=== PATIENT | male | born 1995 | race Caucasian/White ===

== ENCOUNTER 2019-08-15 21:20 | Emergency (ER) | payer OTHER ==
[2019-08-15] MEDS ORDERED: NA CHLORIDE 0.9% 1,000 ML ONE (22:08)
[2019-08-15] MEDS ORDERED: ONDANSETRON 4 MG/2 ML VIAL ONE (22:08)
[2019-08-15] MEDS ORDERED: ALBUTEROL 2.5 MG/3 ML NEB SOL ONE (22:08)
[2019-08-15 22:44] LABS: Absolute Lymphocytes (CBC) 2.1 K/uL (0.7-4.9); Basophils % 0.3 % (0-1.3); Hematocrit 49.2 % (39.6-49.0); Lymphocytes % 19.2 % (15.3-44.8); MPV 8.4 fL (7.6-11.3); RBC Red Blood Cell Count 5.75 M/uL (4.33-5.43)
[2019-08-15 23:47] LABS: ALT/SGPT 63 U/L (12-78); AST/SGOT 25 U/L (15-37); Albumin 3.9 g/dL (3.4-5.0); Alkaline Phosphatase 44 U/L (45-117); BUN Blood Urea Nitrogen 13 mg/dL (7-18); Bicarbonate 31 mmol/L (21-32); Bilirubin Direct 0.1 mg/dL (0-0.2); Bilirubin Total 0.3 mg/dL (0.2-1.0); Glucose Level 100 mg/dL (74-106); Lipase 141 U/L (73-393); Magnesium 2.1 mg/dL (1.8-2.4); NT PRO-BNP 13 pg/mL (<125); Potassium 3.8 mmol/L (3.5-5.1); Sodium Level 141 mmol/L (136-145); Troponin (Emerg Dept Use Only) < 0.02 ng/mL (0.0-0.045)
[2019-08-16] MEDS ORDERED: ACETAMINOPHEN 500 MG TAB ONE (01:09)
--- NOTE | 2019-08-16 01:14 | EDPHYS ---
Physician Documentation [facility] Name: Russell Jaramillo Age: 24 yrs Sex: Male : 1995 Arrival Date: 08/15/2019 Time: 21:23 Bed 26 Private MD: ED Physician Srikanth Kirby HPI: 08/16 00:04 This 24 yrs old Male presents to ER via EMS with complaints of Shortness Of wa Breath, Vomiting. 00:04 The patient has shortness of breath with light activity. Onset: The symptoms/episode wa began/occurred today. Duration: The symptoms are continuous, and are steadily getting worse. The patient's shortness of breath is aggravated by coughing, exertion, light activity, is alleviated by nothing. Associated signs and symptoms: Pertinent positives: chest pain, non-productive cough, fever, vomiting, Pertinent negatives: diaphoresis, dizziness, numbness in extremities. Severity of symptoms: At their worst the symptoms were moderate in the emergency department the symptoms have improved mildly. The patient has experienced similar episodes in the past, a few times. The patient has been recently seen by a physician: the patient's primary care provider. states had come down with flu-like symptoms over that developed into a LLL pna. took a z-te. just went back to work today. had a cute SOB and vomited x 2 while at work. c/o SOB. h/o asthma. h/o pna in the past. Historical: - Allergies: 08/15 21:32 No Known Allergies; tr5 - Home Meds: 21:32 Albuterol Inhl [Active]; Azithromycin Oral [Active]; tr5 - PMHx: 21:32 Asthma; tr5 - Immunization history:: Adult Immunizations up to date. - Social history:: Smoking status: Patient/guardian denies using tobacco. - Ebola Screening: : No symptoms or risks identified at this time. - Family history:: not pertinent. - Hospitalizations: : No recent hospitalization is reported. ROS: 08/16 00:08 Eyes: Negative for injury, pain, redness, and discharge, ENT: Negative for injury, wa pain, and discharge, Neck: Negative for injury, pain, and swelling, Back: Negative for injury and pain, : Negative for injury, bleeding, discharge, and swelling, MS/Extremity: Negative for injury and deformity, Skin: Negative for injury, rash, and discoloration, Neuro: Negative for headache, weakness, numbness, tingling, and seizure, Psych: Negative for depression, anxiety, suicide ideation, homicidal ideation, and hallucinations. Constitutional: Positive for fever, Negative for body aches, chills. Cardiovascular: Positive for chest pain, Negative for edema, orthopnea, palpitations, paroxysmal nocturnal dyspnea. Respiratory: Positive for cough, shortness of breath, Negative for hemoptysis, orthopnea. Abdomen/GI: Positive for nausea and vomiting, Negative for abdominal pain. All other systems are negative. Exam: 00:11 Constitutional: This is a well developed, well nourished patient who is awake, alert, wa and in no acute distress. Head/Face: Normocephalic, atraumatic. Eyes: Pupils equal round and reactive to light, extra-ocular motions intact. Lids and lashes normal. Conjunctiva and sclera are non-icteric and not injected. Cornea within normal limits. Periorbital areas with no swelling, redness, or edema. ENT: Nares patent. No nasal discharge, no septal abnormalities noted. Tympanic membranes are normal and external auditory canals are clear. Oropharynx with no redness, swelling, or masses, exudates, or evidence of obstruction, uvula midline. Mucous membranes moist. Neck: Trachea midline, no thyromegaly or masses palpated, and no cervical lymphadenopathy. Supple, full range of motion without nuchal rigidity, or vertebral point tenderness. No Meningismus. Chest/axilla: Normal chest wall appearance and motion. Nontender with no deformity. No lesions are appreciated. Abdomen/GI: Soft, non-tender, with normal bowel sounds. No distension or tympany. No guarding or rebound. No evidence of tenderness throughout. Back: No spinal tenderness. No costovertebral tenderness. Full range of motion. Skin: Warm, dry with normal turgor. Normal color with no rashes, no lesions, and no evidence of cellulitis. MS/ Extremity: Pulses equal, no cyanosis. Neurovascular intact. Full, normal range of motion. Neuro: Awake and alert, GCS 15, oriented to person, place, time, and situation. Cranial nerves II-XII grossly intact. Motor strength 5/5 in all extremities. Sensory grossly intact. Cerebellar exam normal. Normal gait. Psych: Awake, alert, with orientation to person, place and time. Behavior, mood, and affect are within normal limits. 00:11 Cardiovascular: Rate: tachycardic, Rhythm: regular, Pulses: no pulse deficits are appreciated, Heart sounds: normal, Edema: is not appreciated, JVD: is not appreciated. 00:11 Respiratory: the patient does not display signs of respiratory distress, Respirations: normal, Breath sounds: decreased breath sounds, that are moderate, are scattered, Respiratory rate: nml Vital Signs: 08/15 21:32 BP 122 / 88; Pulse 117; Resp 17; Temp 98.2(O); Pulse Ox 96% on R/A; Weight 100.7 kg tr5 (R); Height 5 ft. 11 in. (180.34 cm); 23:00 BP 122 / 88; Pulse 95; Resp 16; Pulse Ox 99% on R/A; tr5 21:32 Body Mass Index 30.96 (100.70 kg, 180.34 cm) tr5 MDM: 21:33 Patient medically screened. ny 08/16 00:11 Differential diagnosis: Bronchitis pneumonia, pulmonary edema, Pulmonary Embolism wa reactive airway disease, finished zpak. still with symptoms. tachy with SOB. will evaluate further with CT chest. nebs. labs. EKG. reassess. Data reviewed: vital signs, nurses notes. Test interpretation: by ED physician or midlevel provider: EKG interp by me: HR 87. nml sinus. noted flipped T's in aVF and III. isolated. non-specific. 00:52 Test interpretation: by ED physician or midlevel provider: CT chest: no dissection. no wa PE. no pna. 00:53 Response to treatment: the patient's symptoms have markedly improved after treatment. ny ED course: will repeat EKG. pt improved. will walk pt and reassess. 01:10 ED course: walked pt in ED. states SOB resolved. feels better. no nausea. will d/c with ny prednisone burst. close f/u with pulm. advised immediate return if worsening. repeat EKG unchanged from initial. 08/15 21:57 Order name: BMP; Complete Time: 23:58 ny 08/15 21:57 Order name: CBC with Diff; Complete Time: 23:58 ny 08/15 21:57 Order name: Hepatic Function; Complete Time: 23:58 ny 08/15 21:57 Order name: Lipase; Complete Time: 23:59 ny 08/15 21:57 Order name: Magnesium; Complete Time: 23:59 ny 08/15 21:57 Order name: NT PRO-BNP; Complete Time: 23:59 ny 08/15 21:57 Order name: CT Chest For PE Angio ny 08/15 21:57 Order name: PT-INR; Complete Time: 23:59 ny 08/15 21:57 Order name: Troponin (emerg Dept Use Only); Complete Time: 23:59 ny 08/15 21:57 Order name: EKG; Complete Time: 21:59 ny 08/15 21:57 Order name: Cardiac monitoring; Complete Time: 22:52 ny 08/15 21:57 Order name: EKG - Nurse/Tech; Complete Time: 22:54 ny 08/15 21:57 Order name: IV Saline Lock; Complete Time: 22:53 ny 08/15 21:57 Order name: Labs collected and sent; Complete Time: 22:52 ny 08/15 21:57 Order name: O2 Per Protocol; Complete Time: 22:14 ny 08/15 21:57 Order name: O2 Sat Monitoring; Complete Time: 22:14 ny Administered Medications: 08/15 22:41 Drug: Albuterol 1.25 mg Route: Inhalation; tr5 08/16 00:29 Follow up: Response: Marked relief of symptoms tr5 08/15 22:41 Drug: Zofran 4 mg Route: IVP; Site: right antecubital; tr5 08/16 00:28 Follow up: Response: Marked relief of symptoms tr5 08/15 22:41 Drug: NS 0.9% 1000 ml Route: IV; Rate: 1 bolus; Site: right antecubital; tr5 08/16 00:29 Follow up: Response: No adverse reaction; IV Status: Completed infusion; IV Intake: tr5 1000ml 01:09 Drug: Tylenol 1000 mg Route: PO; tr5 01:30 Follow up: Response: Marked relief of symptoms tr5 Disposition: 08/16/19 01:13 Discharged to Home. Impression: shortness of breath, vomiting, chest pain. - Condition is Stable. - Discharge Instructions: Shortness of Breath, Tquo-bf-Dems, Nonspecific Chest Pain, [id number]-[id number]. - Prescriptions for Prednisone 20 mg Oral Tablet - take 2 tablets by ORAL route once daily for 4 days; 8 tablet. - Medication Reconciliation Form, Thank You Letter, Antibiotic Education, Prescription Opioid Use form. - Follow up: Pedro Pablo Martin MD; When: 1 - 2 days; Reason: Recheck today's complaints. - Problem is new. - Symptoms have improved. - Notes: take prednisone as prescribed. take albuterol as needed. follow up with the lung doctor within 2 days as discussed. return immediately for any concerns you deem worrisome, including worsening chest pain and or shortness of breath Signatures: Dispatcher [employer] EDMS Srikanth Kirby MD MD wa Rodriguez, Tommie RN RN tr5 Corrections: (The following items were deleted from the chart) 01:39 01:13 08/16/2019 01:13 Discharged to Home. Impression: shortness of breath; vomiting; tr5 chest pain. Condition is Stable. Forms are Medication Reconciliation Form, Thank You Letter, Antibiotic Education, Prescription Opioid Use. Follow up: Pedro Pablo Martin; When: 1 - 2 days; Reason: Recheck today's complaints. Problem is new. Symptoms have improved. yohan
--- NOTE | 2019-08-16 01:14 | ER ---
Nurse's Notes [facility] Name: Russell Jaramillo Age: 24 yrs Sex: Male : 1995 Arrival Date: 08/15/2019 Time: 21:23 Bed 26 Private MD: Diagnosis: shortness of breath;vomiting;chest pain Presentation: 08/15 21:24 Presenting complaint: EMS states: Pt was diagnosed with pneumonia last week at an tr5 urgent care in [place]. Today was his first day back at work and about an hour ago he started feeling short of breath, vomited X3 and says he feels lightheaded. Transition of care: patient was not received from another setting of care. Onset of symptoms was August 15, 2019. Risk Assessment: Do you want to hurt yourself or someone else? Patient reports no desire to harm self or others. Initial Sepsis Screen: Does the patient meet any 2 criteria? HR > 90 bpm. Does the patient have a suspected source of infection? No. Patient's initial sepsis screen is negative. Care prior to arrival: None. 21:24 Method Of Arrival: EMS: [facility] tr5 21:24 Acuity: FERNANDO 3 tr5 Triage Assessment: 21:24 General: Behavior is calm, cooperative. Respiratory:. tr5 21:24 Respiratory: the patient has mild shortness of breath. tr5 21:30 Respiratory: Onset: The symptoms/episode began/occurred suddenly. tr5 Historical: - Allergies: 21:32 No Known Allergies; tr5 - Home Meds: 21:32 Albuterol Inhl [Active]; Azithromycin Oral [Active]; tr5 - PMHx: 21:32 Asthma; tr5 - Immunization history:: Adult Immunizations up to date. - Social history:: Smoking status: Patient/guardian denies using tobacco. - Ebola Screening: : No symptoms or risks identified at this time. - Family history:: not pertinent. - Hospitalizations: : No recent hospitalization is reported. Screenin:02 Abuse screen: Denies threats or abuse. Nutritional screening: No deficits noted. tr5 Tuberculosis screening: No symptoms or risk factors identified. Fall Risk None identified. Assessment: 21:56 General: Appears uncomfortable. Pain: Denies pain. Neuro: Level of Consciousness is tr5 awake, alert, obeys commands, Oriented to person, place, time, [place] are equal bilaterally. Cardiovascular: Heart tones present Capillary refill < 3 seconds Pulses are all present. Edema is absent. Rhythm is regular. Respiratory: Airway is patent Respiratory effort is even, unlabored, Respiratory pattern is regular, symmetrical, Breath sounds are clear. Respiratory: Reports shortness of breath. GI: Reports vomiting. : No signs and/or symptoms were reported regarding the genitourinary system. EENT: No signs and/or symptoms were reported regarding the EENT system. Derm: No signs and/or symptoms reported regarding the dermatologic system. Musculoskeletal: No signs and/or symptoms reported regarding the musculoskeletal system. Vital Signs: 21:32 BP 122 / 88; Pulse 117; Resp 17; Temp 98.2(O); Pulse Ox 96% on R/A; Weight 100.7 kg tr5 (R); Height 5 ft. 11 in. (180.34 cm); 23:00 BP 122 / 88; Pulse 95; Resp 16; Pulse Ox 99% on R/A; tr5 21:32 Body Mass Index 30.96 (100.70 kg, 180.34 cm) tr5 ED Course: 20:30 Inserted saline lock: 20 gauge in right antecubital area, using aseptic technique. tr5 21:23 Patient arrived in ED. tr5 21:27 Triage completed. tr5 21:32 Arm band placed on Patient placed. tr5 21:33 Srikanth Kirby MD is Attending Physician. wa 21:55 Uche Lma, RN is Primary Nurse. tr5 22:02 Placed in gown. Bed in low position. Call light in reach. tr5 22:43 Radiology exam delayed due to lab results not completed at this time. (BUN/Creatinine). nj 23:10 Radiology exam delayed due to lab results not completed at this time. (BUN/Creatinine). kw1 23:25 Radiology exam delayed due to lab results not completed at this time. kw1 08/16 00:19 CT Chest For PE Angio In Process Unspecified. EDMS 01:12 Pedro Pablo Martin MD is Referral Physician. wa 01:37 No provider procedures requiring assistance completed. Patient did not have IV access tr5 during this emergency room visit. Administered Medications: 08/15 22:41 Drug: Albuterol 1.25 mg Route: Inhalation; tr5 08/16 00:29 Follow up: Response: Marked relief of symptoms tr5 08/15 22:41 Drug: Zofran 4 mg Route: IVP; Site: right antecubital; tr5 08/16 00:28 Follow up: Response: Marked relief of symptoms tr5 08/15 22:41 Drug: NS 0.9% 1000 ml Route: IV; Rate: 1 bolus; Site: right antecubital; tr5 08/16 00:29 Follow up: Response: No adverse reaction; IV Status: Completed infusion; IV Intake: tr5 1000ml 01:09 Drug: Tylenol 1000 mg Route: PO; tr5 01:30 Follow up: Response: Marked relief of symptoms tr5 Intake: 00:29 IV: 1000ml; Total: 1000ml. tr5 Outcome: 01:13 Discharge ordered by . yohan 01:37 Discharged to home ambulatory, with family. tr5 01:37 Condition: stable 01:37 Discharge instructions given to patient, family, Instructed on discharge instructions, follow up and referral plans. medication usage, Demonstrated understanding of instructions, follow-up care, medications, Prescriptions given X 1. 01:39 Patient left the ED. tr5 Signatures: Dispatcher [employer] EDChris Gibson William, MD MD wa Wilhelm, Kimberly kw1 Uche Lam, RN RN tr5
[2019-08-16 01:47] VITALS: BP 122/88; TEMP 98.2
[2019-08-16 01:48] VITALS: O2SAT 99
--- NOTE | 2019-08-16 06:00 | EKG ---
Test Date: 2019-08-15 Test Time: 22:51:34 Instruction Librarian: TR MEASUREMENT RESULTS: Intervals: Rate: 87 FL: 128 QRSD: 94 QT: 366 QTc: 440 [place]: P: 26 FL: 128 QRS: 45 T: -11 INTERPRETIVE STATEMENTS: Normal sinus rhythm Nonspecific T wave abnormality Abnormal ECG Compared to ECG 07/01/2015 03:01:15 T-wave abnormality now present Electronically Signed On 08-16-19 06:00:08 PAEDIATRIC SURGEON by Mohinder Radford
--- NOTE | 2019-08-16 10:51 | RAD REPORT ---
EXAM DESCRIPTION: CT - Chest For Pe Angio - 08/16/2019 5:58 am CLINICAL HISTORY: SOB COMPARISON: None. TECHNIQUE: CT CHEST ANGIOGRAPHY WITH IV CONTRAST on 08/15/2019 9:57 PM MARKETING LIAISON. MIPS reconstructions wer e generated. This exam was performed according to our departmental dose-optimization program, which includes autom ated exposure control, adjustment of the mA and/or kV according to patient size and/or use of iterati ve reconstruction technique. MIP images were generated. FINDINGS: Thoracic aorta is normal in course and caliber without aneurysm or dissection. Pulmonary a rteries are adequately opacified without acute or chronic filling defects. The heart is normal in size. There is no pericardial effusion. Intrathoracic lymph nodes are not enla rged. There is no pleural effusion, pleural thickening or pneumothorax. Central airways are patent. There i s mild atelectasis or scarring in the right middle lobe. In the upper abdomen, liver is fatty in attenuation. There are no acute osseous findings. No suspic ious bony lesions. IMPRESSION: No aortic dissection or aneurysm. No pulmonary embolus. No pneumonia. Electronically signed by: Cong Todd MD 08/16/2019 12:23 AM MARKETING LIAISON Due to temporary technical issues with the PACS/Fluency reporting system, reports are being signed by the in house radiologist as a courtesy to ensure prompt reporting. The interpreting radiologist is f maraly responsible for the content of the report.
--- NOTE | 2019-08-16 13:27 | EKG ---
Test Date: 2019-08-16 Test Time: 00:57:05 Regulatory Lead: TR MEASUREMENT RESULTS: Intervals: Rate: 89 NV: 126 QRSD: 96 QT: 370 QTc: 450 [place]: P: 20 NV: 126 QRS: 44 T: -8 INTERPRETIVE STATEMENTS: Normal sinus rhythm Nonspecific T wave abnormality Abnormal ECG Compared to ECG 08/15/2019 22:51:34 No significant changes Electronically Signed On 08-16-19 13:26:50 WELDING MACHINE OPERATOR PLASMA ARC by Mohinder Radford
== END 2019-08-16 01:39 | disposition home or self-care (01) ==
LOC: ER 21:20
DX: R07.9 Chest pain, unspecified (principal); R11.10 Vomiting, unspecified; J45.909 Unspecified asthma, uncomplicated
CPT/HCPCS: 96361; 93005 ×2; 85025; 80048; 36415; 83735; 85610; 80076; 84484; 83690; 83880; 71275; 96374; 99284; Q9967; J7030; J2405

== ENCOUNTER 2024-05-15 13:06 | Emergency (ER) | payer OTHER ==
[2024-05-15 14:06] LABS: SARS-CoV-2 Antigen CONTROL BLUE LINE VIS/BG OK; SARS-CoV-2 Antigen Rapid Res Negative (Negative)
--- NOTE | 2024-05-15 14:30 | ER ---
Nurse's Notes [facility] Name: Russell Jaramillo Age: 28 yrs Sex: Male : 1995 Arrival Date: 05/15/2024 Time: 13:06 Bed 11 Private MD: Diagnosis: Acute upper respiratory infection, unspecified Presentation: 05/15 13:17 Chief complaint: Patient states: Cough, body aches, fever, and congestion onset Wednesday. cm10 Pt reports that his and son have also been sick. Coronavirus screen: Client denies travel out of the [place] in the last 14 days. At this time, the client does not indicate any symptoms associated with coronavirus-19. Ebola Screen: Patient denies travel to an Ebola-affected area in the 21 days before illness onset. No symptoms or risks identified at this time. Initial Sepsis Screen: Does the patient meet any 2 criteria? HR > 90 bpm. Does the patient have a suspected source of infection? No. Patient's initial sepsis screen is negative. Risk Assessment: Do you want to hurt yourself or someone else? Patient reports no desire to harm self or others. Onset of symptoms was May 15, 2024. 13:17 Method Of Arrival: Ambulatory cm10 13:17 Acuity: FERNANDO 4 cm10 Triage Assessment: 13:19 General: Appears in no apparent distress. comfortable, Behavior is calm, cooperative. cm10 Neuro: No deficits noted. Level of Consciousness is awake, alert, obeys commands, Oriented to person, place, time, situation, Appropriate for age. Respiratory: No deficits noted. Airway is patent Respiratory effort is even, unlabored, Respiratory pattern is regular, symmetrical. Historical: - Allergies: 13:18 No Known Allergies; cm10 - PMHx: 13:18 Asthma; cm10 - PSHx: 13:18 None; cm10 - Immunization history:: Adult Immunizations up to date. - Infectious Disease History:: Denies. - Social history:: Smoking status: Patient denies any tobacco usage or history of. - Family history:: not pertinent. Screenin:50 [facility] Fall Risk Assessment (Adult) History of falling in the last 3 months, tl4 including since admission No falls in past 3 months (0 pts) Confusion or Disorientation No (0 pts) Intoxicated or Sedated No (0 pts) Impaired Gait No (0 pts) Mobility Assist Device Used No (0 pt) Altered Elimination No (0 pt) Score/Fall Risk Level 0 - 2 = Low Risk Oriented to surroundings, Maintained a safe environment, Educated pt \T\ family on fall prevention, incl call for assistance when getting out of bed, Assessed \T\ reinforced patient's understanding of fall precautions. Abuse screen: Denies threats or abuse. Denies injuries from another. Nutritional screening: No deficits noted. Tuberculosis screening: No symptoms or risk factors identified. Assessment: 13:48 General: Appears in no apparent distress. Behavior is calm, cooperative. Pain: tl4 Complains of pain in generalized body aches. Neuro: Level of Consciousness is awake, alert, obeys commands, Oriented to person, place, time, situation. Cardiovascular: Denies chest pain, fatigue, lightheadedness, shortness of breath, Capillary refill < 3 seconds Patient's skin is warm and dry. Respiratory: Reports cough that is Airway is patent Respiratory effort is even, unlabored, Respiratory pattern is regular, symmetrical, Breath sounds are clear bilaterally. GI: No signs and/or symptoms were reported involving the gastrointestinal system. : No signs and/or symptoms were reported regarding the genitourinary system. EENT: Reports nasal congestion nasal discharge. Derm: No signs and/or symptoms reported regarding the dermatologic system. Musculoskeletal: No signs and/or symptoms reported regarding the musculoskeletal system. Vital Signs: 13:17 BP 122 / 96; Pulse 105; Resp 18; Temp 98.8; Pulse Ox 98% on R/A; Weight 113.4 kg; cm10 Height 5 ft. 11 in. ; Pain 2/10; 13:17 Body Mass Index 34.87 (113.40 kg, 180.34 cm) cm10 13:17 Pain Scale: Adult cm10 ED Course: 13:09 Patient arrived in ED. jj6 13:10 Evgeny Thompson MD is Attending Physician. rt 13:18 Triage completed. cm10 13:19 Arm band placed on Patient placed in an exam room, on a stretcher. cm10 13:23 Joselo Nguyen, RN is Primary Nurse. tl4 13:50 Patient has correct armband on for positive identification. Bed in low position. Call tl4 light in reach. Side rails up X 1. Provided Education on: call cale, ed process. Door closed. Noise minimized. Lights dimmed. Moved to private room. 13:51 No provider procedures requiring assistance completed. Patient did not have IV access tl4 during this emergency room visit. Administered Medications: No medications were administered Medication: 13:50 VIS not applicable for this client. tl4 Outcome: 14:28 Discharge ordered by . rt 14:49 Discharged to home ambulatory, bp 14:49 Condition: stable 14:49 Discharge instructions given to patient, Instructed on discharge instructions, follow up and referral plans. Demonstrated understanding of instructions, follow-up care, 14:50 Patient left the ED. bp Signatures: Gt Rocha, RN RN bp Marleny Melgoza jj6 Evgeny Thompson MD MD rt Debra Brar, RN RN cm10 Joselo Nguyen RN RN tl4
--- NOTE | 2024-05-15 14:30 | EDPHYS ---
Physician Documentation [facility] Name: Russell Jaramillo Age: 28 yrs Sex: Male : 1995 Arrival Date: 05/15/2024 Time: 13:06 Bed 11 Private MD: ED Physician Evgeny Thompson HPI: 05/15 15:19 This 28 yrs old Male presents to ER via Ambulatory with complaints of Flu Symptoms. rt 15:19 Patient presents to the ED with cough, congestion, malaise for the past 3 days. Patient rt reports that his and child are both sick with similar symptoms. Denies any difficulty breathing. Denies other acute complaints at this time, symptoms are mild in severity, no other aggravating or alleviating factors.. Historical: - Allergies: 13:18 No Known Allergies; cm10 - PMHx: 13:18 Asthma; cm10 - PSHx: 13:18 None; cm10 - Immunization history:: Adult Immunizations up to date. - Infectious Disease History:: Denies. - Social history:: Smoking status: Patient denies any tobacco usage or history of. - Family history:: not pertinent. ROS: 15:19 Cardiovascular: Negative for chest pain, palpitations, and edema, Abdomen/GI: Negative rt for abdominal pain, nausea, vomiting, diarrhea, and constipation, Skin: Negative for injury, rash, and discoloration, Neuro: Negative for headache, weakness, numbness, tingling, and seizure, 15:19 Constitutional: Positive for body aches, malaise, 15:19 ENT: Positive for rhinorrhea, sore throat, 15:19 Respiratory: Positive for cough, Negative for shortness of breath, wheezing, Exam: 15:19 Constitutional: This is a well developed, well nourished patient who is awake, alert, rt and in no acute distress. Head/Face: Normocephalic, atraumatic. Chest/axilla: Normal chest wall appearance and motion. Nontender with no deformity. No lesions are appreciated. Cardiovascular: Regular rate and rhythm with a normal S1 and S2. No gallops, murmurs, or rubs. Normal PMI, no JVD. No pulse deficits. Respiratory: Lungs have equal breath sounds bilaterally, clear to auscultation and percussion. No rales, rhonchi or wheezes noted. No increased work of breathing, no retractions or nasal flaring. Abdomen/GI: Soft, non-tender, with normal bowel sounds. No distension or tympany. No guarding or rebound. No evidence of tenderness throughout. Skin: Warm, dry with normal turgor. Normal color with no rashes, no lesions, and no evidence of cellulitis. MS/ Extremity: Pulses equal, no cyanosis. Neurovascular intact. Full, normal range of motion. Vital Signs: 13:17 BP 122 / 96; Pulse 105; Resp 18; Temp 98.8; Pulse Ox 98% on R/A; Weight 113.4 kg; cm10 Height 5 ft. 11 in. ; Pain 2/10; 13:17 Body Mass Index 34.87 (113.40 kg, 180.34 cm) cm10 13:17 Pain Scale: Adult cm10 MDM: 13:24 Patient medically screened. rt 15:19 Differential Diagnosis Flu, COVID, viral URI. Data reviewed: vital signs, nurses notes, rt lab test result(s). Test considered but Not performed: X-ray: Clear breath sounds, x-rays not indicated. Care significantly affected by the following chronic conditions: Asthma. Counseling: I had a detailed discussion with the patient and/or guardian regarding the historical points, exam findings, and any diagnostic results supporting the discharge/admit diagnosis, lab results, the need for outpatient follow up. 05/15 13:29 Order name: Influenza Screen (a \T\ B); Complete Time: 14:15 rt 05/15 13:29 Order name: SARS RAPID; Complete Time: 14:15 rt Administered Medications: No medications were administered Disposition Summary: 05/15/24 14:28 Discharge Ordered Notes: Location: Home rt Problem: new rt Symptoms: have improved rt Condition: Stable rt Diagnosis - Acute upper respiratory infection, unspecified rt Followup: rt - With: Private Physician - When: 2 - 3 days - Reason: Discharge Instructions: - Discharge Summary Sheet rt - Viral Respiratory Infection rt Forms: - Work release form rt - Medication Reconciliation Form rt - Antibiotic Education rt - Prescription Opioid Use rt - Patient Portal Instructions rt - Leadership Thank You Letter rt Signatures: Dispatcher [employer] Evgeny Cuellar MD MD rt Debra Brar RN RN cm10
[2024-05-15 14:54] VITALS: BP 122/96; TEMP 98.8; O2SAT 98
== END 2024-05-15 14:50 | disposition home or self-care (01) ==
LOC: ER 13:06
DX: J06.9 Acute upper respiratory infection, unspecified (principal); Z11.52 Encounter for screening for COVID-19
CPT/HCPCS: 36415; 87804; 87811; 99282

== ENCOUNTER 2024-10-16 20:31 | Emergency (ER) | payer OTHER ==
[2024-10-16] MEDS ORDERED: IBUPROFEN 400 MG TAB ONE (21:30)
[2024-10-16] MEDS ORDERED: TDAP (DIPHTH,PERTUSS(ACELL),TET VAC) 0.5 ML VIAL IMVAC ONE (21:31)
[2024-10-16] MEDS ORDERED: HYDROCODONE/APAP 10/325 TAB ONE (21:31)
--- NOTE | 2024-10-16 22:00 | RAD REPORT ---
EXAMINATION: Wrist Left 3 View CLINICAL INDICATION: Male, 29 years old. ANIMAL BITE COMPARISON: No prior exam. VIEWS: Three views FINDINGS: No acute fracture. No malalignment/dislocation. No significant focal degenerative change. Other: No radiopaque foreign body. IMPRESSION: No acute osseous abnormality.
--- NOTE | 2024-10-16 22:01 | RAD REPORT ---
EXAMINATION: Humerus Right CLINICAL INDICATION: Male, 29 years old. ANIMAL BITE RIGHT COMPARISON: No prior exam. FINDINGS: No evidence of fracture or dislocation. Normal alignment. No evidence of arthropathy or oth er focal bone lesion. Soft tissues are unremarkable. IMPRESSION: No acute or significant abnormalities.
--- NOTE | 2024-10-16 22:01 | RAD REPORT ---
EXAM: Hand Right 3 View HISTORY: ANIMAL BITE COMPARISON: None FINDINGS: Bones: No acute fracture identified. Alignment:No significant malalignment. Degenerative changes:None significant. Other: n/a IMPRESSION: No evidence of acute osseous abnormality involving the imaged hand.
--- NOTE | 2024-10-16 22:02 | RAD REPORT ---
EXAMINATION: Forearm Right CLINICAL INDICATION: Male, 29 years old. ANIMAL BITE COMPARISON: No prior exam. VIEWS: Two views FINDINGS: No acute fracture. No malalignment/dislocation. No significant focal degenerative change. Other: n/a IMPRESSION: No acute osseous abnormality.
[2024-10-16] MEDS ORDERED: AMOX/K CLAV 875 MG TAB ONE (23:38)
--- NOTE | 2024-10-16 23:48 | ER ---
Nurse's Notes [facility] Name: Russell Jaramillo Age: 29 yrs Sex: Male : 1995 Arrival Date: 10/16/2024 Time: 20:31 Bed 2 Private MD: Diagnosis: Bitten by dog, initial encounter;Laceration without foreign body of right upper arm, initial encounter;Laceration without foreign body of left wrist, initial encounter;Laceration without foreign body of right hand, initial encounter;Laceration without foreign body of right forearm, initial encounter Presentation: 10/16 20:47 Chief complaint: Patient states: bit by unknown dog while walking his dogs. bite lg3 sustained to right outer and inner wrist, right upper arm and left inner wrist. Sharon MINA notified at time of triage. Coronavirus screen: Client denies travel out of the [place] in the last 14 days. At this time, the client does not indicate any symptoms associated with coronavirus-19. Ebola Screen: No symptoms or risks identified at this time. Initial Sepsis Screen: Does the patient meet any 2 criteria? No. Patient's initial sepsis screen is negative. Does the patient have a suspected source of infection? No. Patient's initial sepsis screen is negative. Risk Assessment: Do you want to hurt yourself or someone else? Patient reports no desire to harm self or others. Onset of symptoms was October 16, 2024. 20:47 Method Of Arrival: Ambulatory lg3 20:47 Acuity: FERNANDO 4 lg3 Triage Assessment: 20:50 Bite description: bite sustained to right arm and left arm by a dog, animal lg3 information: vaccination(s) is unknown. General: Appears in no apparent distress. uncomfortable, Behavior is calm, cooperative. Pain: Complains of pain in right arm and left arm. EENT: No deficits noted. No signs and/or symptoms were reported regarding the EENT system. Neuro: No deficits noted. Kelley Agitation-Sedation Scale (RASS): 0 - Alert and Calm Level of Consciousness is awake, alert, obeys commands, Oriented to person, place, time, situation. Cardiovascular: No deficits noted. Denies chest pain, shortness of breath, Capillary refill < 3 seconds Clubbing of nail beds is absent JVD is absent Patient's skin is warm and dry. Respiratory: No deficits noted. Airway is patent Respiratory effort is even, unlabored, Respiratory pattern is regular, symmetrical. GI: No deficits noted. No signs and/or symptoms were reported involving the gastrointestinal system. : No signs and/or symptoms were reported regarding the genitourinary system. Derm: Skin is intact, is healthy with good turgor, Skin is dry, Skin is normal, Skin temperature is warm Wound noted right arm and left arm. Musculoskeletal: No deficits noted. No signs and/or symptoms reported regarding the musculoskeletal system. Circulation, motion, and sensation intact. Range of motion: intact in all extremities. Historical: - Allergies: 20:50 No Known Allergies; lg3 - Home Meds: 20:50 Albuterol Inhl [Active]; lg3 - PMHx: 20:50 Asthma; lg3 - PSHx: 20:50 kendra knee (Asthma); right hand (Asthma); lg3 - Immunization history:: Adult Immunizations up to date, Last tetanus immunization: unknown. - Infectious Disease History:: Denies. - Social history:: Smoking status: Patient denies any tobacco usage or history of. Patient uses alcohol, occasionally. Patient/guardian denies using street drugs. Screenin:15 [facility] ED Fall Risk Assessment (Adult) History of falling in the last 3 months, lg3 including since admission No falls in past 3 months (0 pts) Confusion or Disorientation No (0 pts) Intoxicated or Sedated No (0 pts) Impaired Gait No (0 pts) Mobility Assist Device Used No (0 pt) Altered Elimination No (0 pt) Score/Fall Risk Level 0 - 2 = Low Risk Oriented to surroundings, Maintained a safe environment, Educated pt \T\ family on fall prevention, incl call for assistance when getting out of bed, Assessed \T\ reinforced patient's understanding of fall precautions. Abuse screen: Denies threats or abuse. Denies injuries from another. Nutritional screening: No deficits noted. Tuberculosis screening: No symptoms or risk factors identified. Assessment: 21:19 Reassessment: Per officer [place] at [facility]. Pt to call dispatch when cm10 discharged to file report. 22:15 Reassessment: Patient appears in no apparent distress at this time. No changes from lg3 previously documented assessment. Patient and/or family updated on plan of care and expected duration. Pain level reassessed. Patient is alert, oriented x 3, equal unlabored respirations, skin warm/dry/pink. 10/17 00:38 Reassessment: Patient appears in no apparent distress at this time. No changes from 3 previously documented assessment. Patient and/or family updated on plan of care and expected duration. Pain level reassessed. Patient is alert, oriented x 3, equal unlabored respirations, skin warm/dry/pink. Vital Signs: 10/16 20:47 BP 143 / 94; Pulse 91; Resp 16 S; Temp 97.8(O); Pulse Ox 99% on R/A; Weight 122.47 kg lg3 (R); Height 5 ft. 10 in. (R); Pain 6/10; 22:15 BP 137 / 91; Pulse 84; Resp 16 S; Pulse Ox 99% on R/A; lg3 10/17 00:39 BP 131 / 86; Pulse 89; Resp 17 S; Temp 97.4(O); Pulse Ox 99% on R/A; 3 10/16 20:47 Body Mass Index 38.74 (122.47 kg, 177.8 cm) [facility] 10/16 20:47 Pain Scale: Adult 3 ED Course: 10/16 20:34 Patient arrived in ED. ra3 20:37 Chacorta Eason PA is PHCP. cp 20:37 Chilango Faulkner MD is Attending Physician. cp 20:50 Triage completed. lg3 20:50 Arm band placed on right wrist. lg3 21:10 Debra Brar, RN is Primary Nurse. cm10 21:53 XRAY Forearm RIGHT In Process Unspecified. EDMS 21:53 XRAY Humerus RIGHT In Process Unspecified. EDMS 21:53 XRAY Hand RIGHT 3 View In Process Unspecified. EDMS 21:53 XRAY Wrist LEFT 3 view In Process Unspecified. EDMS 22:00 Report received from PATRICK Richardson. lg3 22:15 Patient has correct armband on for positive identification. Bed in low position. Call [facility] light in reach. Side rails up X 1. Client placed on continuous cardiac and pulse oximetry monitoring. NIBP monitoring applied. Door closed. Noise minimized. Warm blanket given. Pillow given. Family accompanied patient. 10/17 00:38 Wound care: to puncture located on right arm and left arm was cleaned with Betadine, lg3 dressed with Neosporin, 4X4s, Kerlix, Patient tolerated well. 00:40 No provider procedures requiring assistance completed. Patient did not have IV access lg3 during this emergency room visit. Administered Medications: 10/16 21:37 Drug: HYDROcodone-acetaminophen PO 10 mg-325 mg 1 tabs PO once Route: PO; al5 10/17 00:39 Follow up: Response: No adverse reaction lg3 10/16 21:37 Drug: Ibuprofen PO 800 mg PO once Route: PO; al5 10/17 00:39 Follow up: Response: No adverse reaction lg3 10/16 21:37 Drug: Boostrix Tdap IM 0.5 ml IM once; as a single dose Route: IM; Site: right deltoid; al5 10/17 00:39 Follow up: Response: (VIS) Vaccine information sheet provided today. Questions and/or lg3 concerns addressed. VIS edition date: Apr 11, 2021.; No adverse reaction 10/16 23:40 Drug: Amoxicillin-Clavulanate PO 875 mg PO once Route: PO; lg3 10/17 00:39 Follow up: Response: No adverse reaction lg3 Medication: 00:40 Vaccine Information Statement (VIS) provided today. Questions and/or concerns lg3 addressed. VIS edition date: April 11, 2021. Outcome: 10/16 23:47 Discharge ordered by . jovita 10/17 00:40 Discharged to home ambulatory, with family, lg3 Condition: stable Discharge instructions given to patient, Instructed on discharge instructions, follow up and referral plans. medication usage, wound care, Demonstrated understanding of instructions, follow-up care, medications, wound care, Prescriptions given X 2, 00:40 Patient left the ED. lg3 Signatures: Dispatcher [employer] EDMS Chacorta Eason PA PA cp Able, Lacie, RN RN lg3 Debra Brar, RN RN cm10 Maia Quiros ra3 Penelope Velazquez RN RN al5 Corrections: (The following items were deleted from the chart) 10/16 20:52 20:50 Home Meds: Azithromycin Oral; lg3 lg3 21:09 20:47 Chief complaint: Patient states: bit by unknown dog while walking his dogs. bite lg3 sustained to right outer and inner wrist, right upper arm and left inner wrist. lg3 22:46 22:43 Reassessment: Patient appears in no apparent distress at this time. No changes lg3 from previously documented assessment. Patient and/or family updated on plan of care and expected duration. Pain level reassessed. Patient is alert, oriented x 3, equal unlabored respirations, skin warm/dry/pink. lg3 22:46 22:43 BP 137 / 91; Pulse 84bpm; Resp 16bpm; Spontaneous; Pulse Ox 99% RA; lg3 lg3 22:46 22:43 [facility] ED Fall Risk Assessment (Adult) History of falling in the last 3 months, lg3 including since admission No falls in past 3 months (0 pts) Confusion or Disorientation No (0 pts) Intoxicated or Sedated No (0 pts) Impaired Gait No (0 pts) Mobility Assist Device Used No (0 pt) Altered Elimination No (0 pt) Score/Fall Risk Level 0 - 2 = Low Risk Oriented to surroundings, Maintained a safe environment, Educated pt \T\ family on fall prevention, incl call for assistance when getting out of bed, Assessed \T\ reinforced patient's understanding of fall precautions, lg3 22:46 22:43 Abuse screen: Denies threats or abuse. Denies injuries from another. lg3 lg3 22:46 22:43 Nutritional screening: No deficits noted. lg3 lg3 22:46 22:43 Tuberculosis screening: No symptoms or risk factors identified. lg3 lg3 22:47 22:43 Patient has correct armband on for positive identification. Bed in low position. lg3 Call light in reach. Side rails up X 1. lg3 22:47 22:43 Client placed on continuous cardiac and pulse oximetry monitoring. NIBP lg3 monitoring applied. lg3 22:47 22:43 Door closed. Noise minimized. Warm blanket given. Pillow given. lg3 lg3 22:47 22:43 Family accompanied patient. lg3 lg3
--- NOTE | 2024-10-16 23:48 | EDPHYS ---
Physician Documentation [facility] Name: Russell Jaramillo Age: 29 yrs Sex: Male : 1995 Arrival Date: 10/16/2024 Time: 20:31 Bed 2 Private MD: ED Physician Chilango Faulkner HPI: 10/16 21:10 This 29 yrs old Male presents to ER via Ambulatory with complaints of Dog Bite. cp 21:10 The patient was bitten on the right arm and left arm, by a dog, while trying to stop cp animals from fighting, outdoors. Onset: The symptoms/episode began/occurred just prior to arrival. 21:10 Animal information: Patient/Caregiver unable to provide information related to the cp animal. Animal control has been notified. Secondary to the bite the patient reports multiple lacerations, that are superficial, that are deep, multiple puncture wounds, that are superficial, that are deep. Associated signs and symptoms: The patient has no apparent associated signs or symptoms. Historical: - Allergies: 20:50 No Known Allergies; lg3 - Home Meds: 20:50 Albuterol Inhl [Active]; lg3 - PMHx: 20:50 Asthma; lg3 - PSHx: 20:50 kendra knee (Asthma); right hand (Asthma); lg3 - Immunization history:: Adult Immunizations up to date, Last tetanus immunization: unknown. - Infectious Disease History:: Denies. - Social history:: Smoking status: Patient denies any tobacco usage or history of. Patient uses alcohol, occasionally. Patient/guardian denies using street drugs. ROS: 21:15 Skin: Positive for laceration(s), puncture, of the right hand, right arm and left arm, cp 21:15 Constitutional: Negative for body aches, chills, fever, poor PO intake, cp 21:15 Cardiovascular: Negative for chest pain, palpitations, 21:15 Respiratory: Negative for cough, shortness of breath, wheezing, 21:15 All other systems are negative, Exam: 21:20 Constitutional: The patient appears in no acute distress, alert, awake, cp non-diaphoretic, non-toxic, well developed, well nourished, obese, uncomfortable, 21:20 Head/Face: Normocephalic, atraumatic. cp 21:20 Chest/axilla: Inspection: normal, 21:20 Cardiovascular: Rate: normal, 21:20 Respiratory: the patient does not display signs of respiratory distress, Respirations: normal, no use of accessory muscles, no retractions, labored breathing, is not present, Breath sounds: are clear throughout, no decreased breath sounds, no stridor, no wheezing, 21:20 Abdomen/GI: Inspection: abdomen appears normal, 21:20 Back: pain, is absent, 21:20 Skin: injury, multiple superficial and deep lacerations and puncture wounds noted to right upper inner arm and right forearm and right hand and left forearm. mild bleeding noted, mild swelling noted, Vital Signs: 20:47 BP 143 / 94; Pulse 91; Resp 16 S; Temp 97.8(O); Pulse Ox 99% on R/A; Weight 122.47 kg lg3 (R); Height 5 ft. 10 in. (R); Pain 6/10; 22:15 BP 137 / 91; Pulse 84; Resp 16 S; Pulse Ox 99% on R/A; lg3 10/17 00:39 BP 131 / 86; Pulse 89; Resp 17 S; Temp 97.4(O); Pulse Ox 99% on R/A; lg3 10/16 20:47 Body Mass Index 38.74 (122.47 kg, 177.8 cm) lg3 10/16 20:47 Pain Scale: Adult lg3 MDM: 10/16 20:54 Medical Screening Exam initiated cp 23:46 Data reviewed: vital signs, nurses notes, radiologic studies, plain films. 23:46 Differential diagnosis: superficial laceration, tendon injury, vascular injury, rabies, cp cellulitis. I considered the following discharge prescriptions or medication management in the emergency department Medications were administered in the Emergency Department. See MAR. Counseling: I had a detailed discussion with the patient and/or guardian regarding the historical points, exam findings, and any diagnostic results supporting the discharge/admit diagnosis, radiology results, the need for outpatient follow up, a family practitioner, to return to the emergency department if symptoms worsen or persist or if there are any questions or concerns that arise at home. Response to treatment: the patient's symptoms have mildly improved after treatment, and as a result, I will discharge patient. Special discussion: I discussed in detail with the patient the higher chance of wound infection based on his presenting history. 10/16 21:04 Order name: XRAY Forearm RIGHT; Complete Time: 23:26 cp 10/16 23:26 Interpretation: Reviewed. cp 10/16 21:04 Order name: XRAY Humerus RIGHT; Complete Time: 23:26 cp 10/16 23:26 Interpretation: Report reviewed. cp 10/16 21:04 Order name: XRAY Hand RIGHT 3 View; Complete Time: 23:26 cp 10/16 23:26 Interpretation: Report reviewed. cp 10/16 21:04 Order name: XRAY Wrist LEFT 3 view; Complete Time: 23:26 cp 10/16 23:26 Interpretation: Report reviewed. cp 10/16 23:30 Order name: Wound dressing; Complete Time: 00:29 cp Administered Medications: 21:37 Drug: HYDROcodone-acetaminophen PO 10 mg-325 mg 1 tabs PO once Route: PO; al5 10/17 00:39 Follow up: Response: No adverse reaction lg3 10/16 21:37 Drug: Ibuprofen PO 800 mg PO once Route: PO; al5 10/17 00:39 Follow up: Response: No adverse reaction lg3 10/16 21:37 Drug: Boostrix Tdap IM 0.5 ml IM once; as a single dose Route: IM; Site: right deltoid; al5 10/17 00:39 Follow up: Response: (VIS) Vaccine information sheet provided today. Questions and/or lg3 concerns addressed. VIS edition date: Apr 11, 2021.; No adverse reaction 10/16 23:40 Drug: Amoxicillin-Clavulanate PO 875 mg PO once Route: PO; lg3 10/17 00:39 Follow up: Response: No adverse reaction lg3 Disposition: 19:08 Chart complete. cp Disposition Summary: 10/16/24 23:47 Discharge Ordered Notes: Location: Home cp Problem: new cp Symptoms: have improved cp Condition: Stable cp Diagnosis - Bitten by dog, initial encounter cp - Laceration without foreign body of right upper arm, initial encounter cp - Laceration without foreign body of left wrist, initial encounter cp - Laceration without foreign body of right hand, initial encounter cp - Laceration without foreign body of right forearm, initial encounter cp Followup: cp - With: Private Physician - When: 1 - 2 days - Reason: Wound Recheck Discharge Instructions: - Discharge Summary Sheet cp Forms: - Medication Reconciliation Form cp - Antibiotic Education cp - Prescription Opioid Use cp - Patient Portal Instructions cp - Leadership Thank You Letter cp - Work release form br2 Prescriptions: - Anaprox DS 550 mg Oral Tablet - take 1 tablet ORAL route every 12 hours As needed; 20 tablet; Refills: 0, cp Product Selection Permitted - Augmentin 875-125 mg Oral Tablet - take 1 tablet ORAL route every 12 hours for 10 days; 20 tablet; Refills: 0, cp Product Selection Permitted Addendum: 10/18/2024 05:13 I was immediately available for consultation during this patient's visit. I did not e c2 personally see the patient or discuss the patient with the NGOC. . Signatures: Dispatcher [employer] EDMS Chacorta Eason PA PA cp Able, Lacie, RN RN lg3 Chilango Faulkner MD MD ec2 Penelope Velazquez RN RN al5 Corrections: (The following items were deleted from the chart) 10/16 20:52 20:50 Home Meds: Azithromycin Oral; lg3 lg3 21:05 21:05 Hand Right 3 View+RAD.[email or web address] ordered. EDMS EDMS 21:05 21:05 Wrist Left 3 View+RAD.[email or web address] ordered. EDMS EDMS
[2024-10-17 04:08] VITALS: O2SAT 99
[2024-10-17 04:10] VITALS: BP 131/86; TEMP 97.4
== END 2024-10-17 00:40 | disposition home or self-care (01) ==
LOC: ER 20:31
DX: S41.111A Laceration without foreign body of right upper arm, initial encounter (principal); S61.411A Laceration without foreign body of right hand, initial encounter; S51.811A Laceration without foreign body of right forearm, initial encounter; S61.512A Laceration without foreign body of left wrist, initial encounter; W54.0XXA Bitten by dog, initial encounter